=== PATIENT | female | born 1940 | race Hispanic/Latino ===

== ENCOUNTER 2018-01-16 12:56 | Outpatient (CLI) | payer MEDICARE, OTHER ==
[2018-01-16 13:29] LABS: Hematocrit 26.9 % (30.3-42.9); Hemoglobin 8.8 gm/dl (10.1-14.3); Mean Corpuscular HGB Conc 33 % (30-34); Mean Corpuscular Hemoglobin 31 pg (28-32); Mean Corpuscular Volume 95 fl (79-97); Platelet Count 168 K/mm3 (140-440); Red Blood Count 2.83 M/mm3 (3.65-5.03); Red Cell Distribution Width 15.3 % (13.2-15.2)
[2018-01-16 13:45] LABS: Albumin 4.3 g/dL (3.9-5); Calcium 9.6 mg/dL (8.4-10.2)
--- NOTE | 2018-01-16 19:44 | Cat Scan Report ---
FINAL REPORT EXAM: CT ABDOMEN PELVIS WO CON HISTORY: HEMATURIA TECHNIQUE: CT abdomen and pelvis without contrast PRIORS: None. FINDINGS: There is a small right pleural effusion No focal abnormality identified within the liver parenchyma on nonenhanced images.. The spleen demonstrates normal size and attenuation. No pancreatic abnormalities seen. At the mid right kidney there is a hyperdense subcortical focus measuring 1.1 x 1.2 centimeters. At the lower pole the right kidney there is a solid-appearing cortical based mass measuring 2.9 x 3.2 x 3.0 centimeters incompletely characterized due to lack of IV contrast The adrenal glands are unremarkable. Abdominal aorta is normal in caliber. Aortoiliac calcifications are noted. No pathologically enlarged lymph nodes are identified. No signs of free fluid or free air No evidence of small bowel dilatation. No pericolonic inflammatory changes are identified Urinary bladder is unremarkable. IMPRESSION: 3.2 centimeter mass lower pole of the right kidney concerning for neoplasm. Further characterization rim recommended. If iodinated contrast contraindicated for this patient MRI with renal protocol suggested. Additional hyperdense focus upper pole right kidney probable proteinaceous cyst Small right pleural effusion
== END 2018-01-16 12:57 | disposition home or self-care (01) ==
LOC: CT 12:56
PROVIDERS: ATTEND Urology
DX: R31.9 Hematuria, unspecified (principal); J90 Pleural effusion, not elsewhere classified; N28.89 Other specified disorders of kidney and ureter; I70.0 Atherosclerosis of aorta
CPT/HCPCS: 36415; 74176; 80053; 85027

== ENCOUNTER 2018-01-19 07:51 | Outpatient (CLI) | payer MEDICARE, OTHER ==
--- NOTE | 2018-01-19 16:39 | Ultrasound Report ---
FINAL REPORT PROCEDURE: US RENAL BILAT TECHNIQUE: Real-time sonography in multiple planes of the kidneys, ureters and urinary bladder was performed with image documentation. CPT 40607 HISTORY: NEOPLASM OF UNCERTAIN BEHAVIOR OF RIGHT KIDNEY COMPARISON: CT abdomen and pelvis 01/16/2018 FINDINGS: RIGHT kidney: The size of the kidney is normal. The renal cortex has a normal thickness at 12 millimeters. No hydronephrosis. In the lower pole of the right kidney there is a mass with mixed echogenicity. A portion of this appears cystic. This measures 32 x 30 x 28 millimeters. This does correspond to mass seen off the inferior right kidney on the patient's CT scan. This has indeterminate characteristics and could represent a complicated cyst or neoplasm. There is a small sub centimeter area of hypoattenuation in the upper pole of the right kidney this measures 7 x 5 x 9 millimeters. This appears to correspond to a hyper attenuated lesion on the CT scan. A 3rd area of diminished echogenicity in the lateral mid right renal cortex measures 7 x 4 x 7 millimeters. This appears to correspond to region of hyperattenuation on the patient's computerized tomography. Complicated cysts in these 2 areas are suspected. Further evaluation with multi phase contrast CT of the kidneys or MRI of the kidneys may be of benefit for further differentiation of this lower pole mass.. Length: 10.4 cm. LEFT kidney: The size of the left kidney is normal. Renal cortex is normal. No hydronephrosis. No renal masses.. Length: 8.7cm. Bladder: Normal. IMPRESSION: There is an indeterminate mass in the lower pole of the right kidney measuring 32 x 30 x 28 millimeters. This could represent a complicated cyst or a neoplasm in this region, further imaging differentiation which could include multi phase contrast CT or MRI may be of benefit. Two smaller lesions of diminished echogenicity in the right renal cortex are most consistent with sub centimeter complicated cysts...
== END 2018-01-19 07:52 | disposition home or self-care (01) ==
LOC: US 07:51
PROVIDERS: ATTEND Urology
DX: D41.01 Neoplasm of uncertain behavior of right kidney (principal); N28.89 Other specified disorders of kidney and ureter
CPT/HCPCS: 76770

== ENCOUNTER 2018-01-29 11:16 | Outpatient (CLI) | payer MEDICARE, OTHER ==
[2018-01-29 12:21] LABS: Hematocrit 26.6 % (30.3-42.9); Hemoglobin 8.4 gm/dl (10.1-14.3); Mean Corpuscular HGB Conc 32 % (30-34); Mean Corpuscular Hemoglobin 29 pg (28-32); Mean Corpuscular Volume 91 fl (79-97); Platelet Count 160 K/mm3 (140-440); Red Blood Count 2.91 M/mm3 (3.65-5.03); Red Cell Distribution Width 16.1 % (13.2-15.2)
[2018-01-29 12:39] LABS: Albumin 4.2 g/dL (3.9-5); Calcium 10.2 mg/dL (8.4-10.2)
== END 2018-01-29 11:17 | disposition home or self-care (01) ==
LOC: CT 11:16
PROVIDERS: ATTEND Urology
DX: D41.01 Neoplasm of uncertain behavior of right kidney (principal)
CPT/HCPCS: 36415; 80053; 85027

== ENCOUNTER 2018-02-02 07:53 | Day surgery (SDC) | payer MEDICARE, OTHER ==
[2018-02-02] MEDS ORDERED: NACL 0.9% 1000 ML 1,000 ML IV SCH (08:10)
[2018-02-02 08:25] VITALS: BP 143/58
--- NOTE | 2018-02-02 13:46 | Cat Scan Report ---
FINAL REPORT EXAM: CT ABDOMEN PELVIS W CON HISTORY: hematuria TECHNIQUE: CT of the abdomen and pelvis with IV contrast. PRIORS: CT abdomen pelvis January 16, 2018. FINDINGS: ABDOMEN: Partially imaged small to moderate right pleural effusion with adjacent compressive atelectasis. Moderate to marked cardiomegaly is partially imaged. No pericardial effusion. Coronary artery disease. Heterogeneous low attenuation to the liver may represent hepatocellular disease or fatty infiltration. No suspicious enhancement or lesions. Differential diagnosis does include cirrhosis. Small amount of free fluid around the liver. Midline ventral hernia on series 2:20 contains fat and fluid. Hyperemia of the gallbladder wall with mild wall thickening. Distinct stone is noted. Common bile duct does not appear to be dilated. 4.3 mm low-attenuation lesion in the spleen on series 2:25 is nonspecific. Stomach and adrenals are unremarkable. Low-attenuation lesion in the body of the pancreas on series 2:28 measures 7 point film mm. Pancreatic duct is dilated measuring approximately 4 mm. Kidneys: Dense lesion in the mid right renal cortex on series 2:38 measures 12 mm and is unchanged compared to the prior. Cystic lesion with solid or dense component in the inferior right kidney on series 2: 44-49 measures 4 by 3 cm. There may be a dense or solid component near the proximal aspect the lesion overall appearance is similar to prior. Difficult to evaluate because of the lack of coronal sagittal reconstructed imaging. Lower left kidney with a thin septation enhancement series 2:40 measures 10 mm. Subcentimeter hypodensities in both kidneys statistically likely represent cysts but are too small to accurately characterize. No hydronephrosis. IVC is intact. [id number] aortic atherosclerotic disease. No aneurysm. No dissection. 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 No periaortic or retroperitoneal mass or adenopathy. Colonic diverticulosis. Mild to moderate stool. No wall thickening or inflammatory changes. Terminal ilium is unremarkable. Appendix is not clearly identified. No pericecal inflammatory changes. Small bowel loops are unremarkable. No obstructive pattern. No free air. No free fluid. Fat containing umbilical hernia. No strangulation. PELVIS: Small to moderate free fluid in the pelvis. Bladder is unremarkable. There is no pelvic mass or adenopathy. Inguinal regions are unremarkable. Bones: No suspicious osseous lesions on this limited examination of the skeleton. Metastatic disease better evaluated with bone scan. Degenerative changes are in the spine. IMPRESSION: Without the benefit of coronal and sagittal reconstructed imaging, difficult to characterize the right and left inferior complex lesions. Possible Bosniak 2F or Bosniak 3 cyst. Further imaging with MRI may be helpful. Hyperdense cyst in the mid right kidney is unchanged compared to the prior. Probable subcentimeter bilateral renal cysts. Right pleural effusion is partially imaged. Cardiomegaly. Heterogeneous appearance to the liver may represent hepatocellular disease or fatty infiltration. Differential diagnosis does include cirrhosis. Nonspecific low-attenuation lesion in the spleen. Low-attenuation lesion in the body of the pancreas with dilated pancreatic duct. Further evaluation with CT abdomen pancreatic protocol or MRI/MRCP may be helpful if clinically indicated. Midline ventral hernia containing fat and fluid. Hyperemia and gallbladder wall thickening. Please correlate with ultrasound for possible cholecystitis. Ascites.
== END 2018-02-02 15:20 | disposition home or self-care (01) ==
LOC: CATHLABREC 07:53
PROVIDERS: ATTEND Radiology Diagnostic Radiology
DX: R31.9 Hematuria, unspecified (principal)
CPT/HCPCS: 36415; 74177; 82565; 84520; 96360; 96361; J7030; Q9967